=== PATIENT | female | born 1985 | race African-American/Black ===

== ENCOUNTER 2024-06-16 17:37 | Emergency (ER) | payer OTHER ==
[~2024-06-16] VITALS: Ht 170.2 cm; Wt 111.1 kg
[2024-06-16 17:59] VITALS: BP 169/90; TEMP 97.9; O2SAT 99
[2024-06-16] MEDS: KETOROLAC TROMETHAMINE 15 MG/ML VIAL IM ONE (18:30)
[2024-06-16] MEDS ORDERED: KETOROLAC TROMETHAMINE 15 MG/ML VIAL ONE (19:20)
[2024-06-16] MEDS ORDERED: IBUP-1953 PO (19:39)
[2024-06-16] MEDS ORDERED: ACET-2030 PO (19:39)
== END 2024-06-16 22:20 | disposition home or self-care (01) ==
LOC: ER 17:45
DX: S39.012A Strain of muscle, fascia and tendon of lower back, initial encounter (principal); V43.52XA Car driver injured in collision with other type car in traffic accident, initial encounter; Y93.89 Activity, other specified; Y92.488 Other paved roadways as the place of occurrence of the external cause; Y99.8 Other external cause status
CPT/HCPCS: 99283; 96372; 72100; J1885